=== PATIENT | female | born 1970 | race Caucasian/White ===

== ENCOUNTER 2023-03-05 10:34 | Emergency (ER) | payer OTHER ==
--- NOTE | 2023-03-05 10:38 | ERPHSYRPT ---
- History of Present Illness Time Seen by Provider: 03/05/23 10:38 Source: patient Exam Limitations: no limitations Physician History: This is a 52-year-old white female who is right-handed and has a history of COPD and hypertension who was pushing a box into the back of a truck while loading it and her right wrist and forearm went up as metal came down onto it causing instant pain and swelling to this area. She has no other complaints of pain or injury Occurred: just prior to arrival Method of Injury: other (Blunt trauma), direct blow Quality: constant Severity of Pain-Max: moderate Severity of Pain-Current: mild (To moderate) Extremities Pain Location: forearm: right, wrist: right Modifying Factors: Improves With: movement, other (Pain on palpation) Associated Symptoms: none Allergies/Adverse Reactions: influenza virus vaccine, specific Allergy (Severe, Verified 03/05/23 10:45) Difficulty Breathing tetanus and diphtheria toxoids Allergy (Severe, Verified 03/05/23 10:45) Difficulty Breathing cephalexin [From Keflex] Allergy (Intermediate, Verified 03/05/23 10:45) Rash Home Medications: Metoprolol Succinate 25 mg Xl* [Toprol-Xl 25MG Tablets] 25 mg PO BID 03/05/23 [History] Montelukast Sodium 10 mg [Singulair 10 MG] 10 mg PO HS 03/05/23 [History] Travel Risk - International Travel Have you traveled outside of the country in past 3 weeks: No - Coronavirus Screening Are you exhibiting any of the following symptoms?: No Close contact with a COVID-19 positive Pt in past 14-21 Days: No - Review of Systems Constitutional: No Symptoms Eyes: No Symptoms Ears, Nose, & Throat: No Symptoms Respiratory: No Symptoms Cardiac: No Symptoms Abdominal/Gastrointestinal: No Symptoms Genitourinary Symptoms: No Symptoms Musculoskeletal: Injury (Right wrist and right forearm) Skin: No Symptoms Neurological: No Symptoms Psychological: No Symptoms Endocrine: No Symptoms Hematologic/Lymphatic: No Symptoms Immunological/Allergic: No Symptoms All Other Systems: Reviewed and Negative - Nursing Vital Signs Nursing Vital Signs: Initial Vital Signs Temperature 97.7 F 03/05/23 10:41 Pulse Rate 60 03/05/23 10:41 Respiratory Rate 16 03/05/23 10:41 Blood Pressure 132/89 03/05/23 10:41 Pain Scale Pain Intensity 5 - Physical Exam General Appearance: no apparent distress, alert, anxiety Eyes, Ears, Nose, Throat Exam: normal ENT inspection, moist mucous membranes Neck Exam: normal inspection, non-tender, supple, full range of motion Cardiovascular/Respiratory Exam: chest non-tender, no respiratory distress Abdominal Exam: non-tender Back Exam: normal inspection, normal range of motion, No CVA tenderness, No vertebral tenderness Shoulder Exam: normal inspection, non-tender, no evidence of injury, normal ROM Elbow/Forearm Exam: bone tenderness (Distal right forearm), soft tissue tenderness (Distal right forearm), swelling (Distal right forearm) Wrist Exam: bone tenderness (Wrist right side), limited ROM, soft tissue tenderness (Wrist right side) Hand Exam: normal inspection, non-tender, no evidence of injury, normal ROM Neuro/Tendon Exam: normal sensation, normal motor functions, normal tendon functions, responds to pain, no evidence tendon injury Mental Status Exam: alert, oriented x 3, cooperative Skin Exam: normal color, warm, dry SpO2 Interpretation: normal O2 Delivery: Room Air - Course Nursing assessment & vital signs reviewed: Yes Ordered Tests: Active Orders 24 hr Category Date Time Status FOREARM Stat Exams 03/05/23 10:54 Taken WRIST (MIN 3 VIEWS) Stat Exams 03/05/23 10:54 Taken Medication Summary Discontinued Medications Generic Name Dose Route Start Last Admin Trade Name Wilfrido PRN Reason Stop Dose Admin Oxycodone/Acetaminophen 1 tab 03/05/23 10:54 03/05/23 11:14 Oxycodone Hcl/Apap 5 Mg/325 Mg Tablet PO 03/05/23 10:55 1 tab STAT STA Administration Oxycodone/Acetaminophen Confirm 03/05/23 11:12 Oxycodone Hcl/Apap 5 Mg/325 Mg Tablet Administered 03/05/23 11:13 Dose 1 tab .ROUTE .STK-MED ONE - Progress Progress: improved, pain not gone completely, re-examined Progress Note: 03/05/23 12:00 X-ray of right wrist was interpreted by me. I do not appreciate a cortical disruption, acute fracture or dislocation. X-ray of the right forearm was interpreted by me. I do not appreciate a cortical disruption, acute fracture or dislocation. This patient's medical issue is 1 of low complexity. The level of complexity and the work-up performed is based on the review of the patient's past medical history, review of the patient's medication list, review the patient's drug allergy list, history of present illness and physical findings on examination. X-ray of the right wrist and right forms were the studies indicated in this patient. I do not appreciate an acute fracture or dislocation of the right wrist or right forearm. We we will place the patient in a Velcro splint and provide her with outpatient instructions. I will send a prescription for couple days of Percocet 5/325 medication. She is aware that this is not the final read and if the final read differs from my reading, she will receive a phone call from our emergency department. Counseled pt/family regarding: diagnosis, need for follow-up, rad results Medical Desision Making - Independent Historian Additional History obtained from: Child - Diagnostic Testing Diagnostic test were ordered, analyzed, and reviewed by me: Yes Radiological Interpretation: Interpreted by me - Risk of complications The pt has a mod risk of morbidity or mortality based on: Need for prescription drug management - Departure Departure Disposition: Home Clinical Impression: Contusion of right wrist, Contusion of right forearm Condition: Stable Critical Care Time: No Referrals: DANIEL BUTLER MD [Primary Care Provider] - Follow up/PCP as directed Additional Instructions: Wear Velcro splint for comfort. Add ibuprofen 600 mg orally 3 times a day for 5 days. Take with food. Follow-up with [facility] orthopedic clinic or your primary care provider if symptoms persist beyond 2 to 3 days. Prescriptions: Oxycodone HCl/Acetaminophen [Percocet 5-325 mg Tablet] 1 each PO Q8H PRN PRN #6 tablet MDD 3 PRN Reason: Moderate To Severe Pain
[2023-03-05] MEDS ORDERED: PERCOCET TABLET 5/325MG PO STA (10:54)
[2023-03-05] MEDS ORDERED: PERCOCET TABLET 5/325MG ONE (11:12)
[2023-03-05 12:02] VITALS: BP 130/81; PULSE 56; O2SAT 98
--- NOTE | 2023-03-05 15:19 | XRAY ---
CLINICAL HISTORY:Blunt trauma. COMPARISON:None. TECHNIQUES:X-ray right forearm AP and lateral views. FINDINGS: No acute fracture is identified. Normal bone mineralization. No lytic or sclerotic lesion. Cortical margins of the osseous structures are within normal limits. Articular margins are intact. Normalvisualized joint space. No calcifications are seen within soft tissues. IMPRESSION: No acute osseous abnormality could be seen. DISCLAIMER: A subtle bone abnormality or fracture may not be readily apparent on x-rays, thus clinical correlation and further imaging including follow up CT, MRI, or follow up x-rays are advised as needed. Electronically Signed by: Paola Araiza MD. (03/05/2023 14:15:50 MANAGER DIABETES)
--- NOTE | 2023-03-05 15:29 | XRAY ---
CLINICAL HISTORY:Blunt trauma. COMPARISON:None. TECHNIQUES:X-ray of right wrist; AP, oblique and lateral views. FINDINGS: Normal bone mineralization. Radiological examination of wrist demonstrates no focal bony lesion. No bone erosion noted. Subtle linear lucency seen traversing the mid-capitate bone likely artifact. No other signs of acute fracture is evident. Cortical margins of the osseous structures are within normal limits. Articular margins are intact. Normal radiocarpal space and carpometacarpal joint spaces. Soft tissues appear unremarkable. IMPRESSION: 1. Subtle linear lucency seen traversing the mid-capitate bone likely artifact, however clinical correlation for focal tenderness is suggested to rule out possible fracture and further evaluation with CT /MRI may be advised if clinically indicated. 2. No other acute osseous abnormality seen. DISCLAIMER: A subtle bone abnormality or fracture may not be readily apparent on x-rays, thus clinical correlation and further imaging including follow up CT, MRI, or follow up x-rays are advised as needed. Electronically Signed by: Paola Araiza MD. ( 03/05/2023 14:26:01 INTERCEPTOR OPERATOR)
== END 2023-03-05 12:18 | disposition home or self-care (01) ==
LOC: ED 10:34
DX: S60.211A Contusion of right wrist, initial encounter (principal); S50.11XA Contusion of right forearm, initial encounter; W20.8XXA Other cause of strike by thrown, projected or falling object, initial encounter; I10 Essential (primary) hypertension; Z79.891 Long term (current) use of opiate analgesic; Z79.899 Other long term (current) drug therapy
CPT/HCPCS: 73090; 73110; 99283; L3908; A9270-GY